=== PATIENT | male | born 1970 | race Caucasian/White ===

== ENCOUNTER 2021-12-03 07:48 | Outpatient (CLI) | payer SELFPAY ==
--- NOTE | ~2021-12-03 | US_ITS ---
EXAMINATION: US retroperitoneal duplex ltd EXAM DATE: 12/03/2021 08:30 INDICATION: R/O renal stenosis, essential (primary) hypertension. TECHNIQUE: Multiple grayscale and Doppler images of the kidneys and renal arteries were obtained. T here is no prior study for comparison. FINDINGS: The aorta peak systolic velocity is 86 cm/s. Renal arteries interrogated in several segments from origin to hilum. RIGHT RENAL ARTERY Proximal segment (origin): 50 cm/s. Middle segment: 65 cm/s. Distal segment (hilum): 185 cm/s. LEFT RENAL ARTERY Proximal segment (origin): Unable to visualize. Middle segment: Unable to visualize. Distal segment (hilum): 50 cm/s. Please note normal renal artery velocities are less than 180-200 cm/s. IMPRESSION: Borderline elevated right renal artery velocity distally, may be spurious reading given t he measurements are normal. Reviewed, dictated and finalized at location B. IMPRESSION: Borderline elevated right renal artery velocity distally, may be sp urious reading given the measurements are normal.
== END 2021-12-03 07:49 ==
PROVIDERS: PCP Internal Medicine; Visit Provider Physician Assistant Medical
DX: I10 Essential (primary) hypertension (principal)
CPT/HCPCS: 93976